=== PATIENT | female | born 1960 | race Caucasian/White ===

== ENCOUNTER 2016-10-26 23:05 | Emergency (ER) | payer OTHER ==
[~2016-10-26 23:05] MED LIST: ADDERALL10 MG PO; ATIVAN0.5 M1 PO; METFORMIN HCL500 MG PO; REMERON30 MG PO; ZOC10 PO
[2016-10-27 00:36] LABS: microscopic required? NO
[2016-10-27 00:43] LABS: UA SPECIFIC GRAVITY <=1.005 (1.005-1.035); urine erythrocyte NEGATIVE (NEGATIVE)
[2016-10-27 00:46] LABS: BASOPHIL % 0.8 % (0-2); PLATELET COUNT 308 x10^3mcL (130-400)
[2016-10-27 00:49] LABS: RED CELL DISTRIBUTION WIDTH 19.8 % (11.5-14.5)
[2016-10-27 01:05] LABS: ALKALINE PHOSPHATASE 210 U/L (46-116); ALT/SGPT 86 U/L (14-59); AST/SGOT 118 U/L (15-37); BILIRUBIN TOTAL 0.54 mg/dL (0.20-1.00); CALCIUM 8.9 mg/dL (8.5-10.1); CARBON DIOXIDE 24.8 mmol/L (21-32); CHLORIDE SERUM 95 mmol/L (98-107); CREATININE SERUM 0.9 mg/dL (0.6-1.0); GFR1 > 60 mL/min; POTASSIUM SERUM 4.2 mmol/L (3.5-5.1); SODIUM SERUM 129 mmol/L (136-145); TOTAL PROTEIN, SERUM 7.9 g/dL (6.4-8.2)
[2016-10-27 01:07] LABS: GLUCOSE SERUM 513 mg/dL (74-106)
[2016-10-27 03:39] VITALS: BP 108/63
[2016-10-27] MEDS ORDERED: LATUDA20 M1 PO (22:42)
[2016-10-27] MEDS ORDERED: LUNESTA2 M1 PO (22:43)
== END 2016-10-27 03:39 | disposition home or self-care (01) ==
LOC: ED 23:05
PROVIDERS: Emergency Medicine
DX: E11.65 Type 2 diabetes mellitus with hyperglycemia (principal); E86.0 Dehydration; I10 Essential (primary) hypertension; F99 Mental disorder, not otherwise specified; Z79.84 Long term (current) use of oral hypoglycemic drugs
CPT/HCPCS: 82962; J1815; J1885; J7030; J7040

== ENCOUNTER 2016-10-27 17:25 | Inpatient (IN) | payer OTHER ==
[~2016-10-27] VITALS: Ht 160 cm; Wt 81.6 kg
[2016-10-27 21:09] LABS: BASOPHIL % 0.2 % (0-2); PLATELET COUNT 274 x10^3mcL (130-400)
[2016-10-27 21:10] LABS: RED CELL DISTRIBUTION WIDTH 19.9 % (11.5-14.5)
[2016-10-27 21:41] LABS: ALKALINE PHOSPHATASE 198 U/L (46-116); ALT/SGPT 87 U/L (14-59); AST/SGOT 161 U/L (15-37); BILIRUBIN TOTAL 0.3 mg/dL (0.20-1.00); CALCIUM 8.5 mg/dL (8.5-10.1); CARBON DIOXIDE 25.7 mmol/L (21-32); CHLORIDE SERUM 95 mmol/L (98-107); CHOLESTEROL 143 mg/dL (<200); CREATININE SERUM 0.9 mg/dL (0.6-1.0); GFR1 > 60 mL/min; PHOSPHOROUS 2.2 mg/dL (2.5-4.9); POTASSIUM SERUM 4.5 mmol/L (3.5-5.1); SODIUM SERUM 131 mmol/L (136-145); URIC ACID 2.7 mg/dL (2.6-6.0)
[2016-10-27 21:43] LABS: ALBUMIN 2.7 g/dL (3.4-5.0); GLUCOSE SERUM 456 mg/dL (74-106); HDL CHOLESTEROL 19 mg/dL (40-60)
[2016-10-27] MEDS ORDERED: LATUDA20 M1 PO (22:42)
[2016-10-27] MEDS ORDERED: LUNESTA2 M1 PO (22:43)
[2016-10-27 22:54] LABS: microscopic required? NO
[2016-10-27 23:10] LABS: UA SPECIFIC GRAVITY <=1.005 (1.005-1.035); urine erythrocyte NEGATIVE (NEGATIVE)
[2016-10-27 23:21] LABS: AMPHETAMINE QUAL UR NONE DETECTED (NEG <=1000)
[2016-10-27 23:31] VITALS: BP 110/62
[2016-10-28 00:01] LABS: T3 TOTAL 1.18 ng/mL
[2016-10-28 00:17] LABS: MAGNESIUM 1.7 mg/dL (1.8-2.4)
[2016-10-28 00:18] VITALS: BP 110/62
[2016-10-28 00:36] LABS: FREE T4 1.33 ng/dL (0.76-1.46); FREE THYROXINE INDEX 3.6 ug/dL (1.4-4.5); T4(THYROXINE) 10.8 ug/dL (4.7-13.3)
[2016-10-28 04:31] LABS: BASOPHIL % 0.2 % (0-2); PLATELET COUNT 302 x10^3mcL (130-400); RED CELL DISTRIBUTION WIDTH 20.6 % (11.5-14.5)
[2016-10-28 04:52] LABS: CALCIUM 8.6 mg/dL (8.5-10.1); CARBON DIOXIDE 25.4 mmol/L (21-32); CHLORIDE SERUM 102 mmol/L (98-107); CREATININE SERUM 0.7 mg/dL (0.6-1.0); GFR1 > 60 mL/min; GLUCOSE SERUM 272 mg/dL (74-106); MAGNESIUM 1.7 mg/dL (1.8-2.4); PHOSPHOROUS 2.3 mg/dL (2.5-4.9); POTASSIUM SERUM 3.9 mmol/L (3.5-5.1); SODIUM SERUM 135 mmol/L (136-145)
[2016-10-28 05:43] LABS: target cell (codocyte) 2+
[2016-10-28 05:44] LABS: rbc morphology (normal/abnorm) ABNORMAL (NORMAL)
[2016-10-28 06:57] VITALS: BP 96/36
[2016-10-28 10:03] VITALS: BP 100/64
[2016-10-28 11:58] VITALS: Ht 160 cm; Wt 81.6 kg
[2016-10-28 13:13] VITALS: BP 117/79
[2016-10-28 18:05] VITALS: BP 126/63
[2016-10-28 21:34] VITALS: BP 97/54
[2016-10-29 06:31] LABS: BASOPHIL % 0.4 % (0-2); PLATELET COUNT 316 x10^3mcL (130-400)
[2016-10-29 06:45] LABS: RED CELL DISTRIBUTION WIDTH 20.7 % (11.5-14.5)
[2016-10-29 06:47] LABS: rbc morphology (normal/abnorm) ABNORMAL (NORMAL); target cell (codocyte) 1+
[2016-10-29 06:53] LABS: CALCIUM 8.7 mg/dL (8.5-10.1); CARBON DIOXIDE 24.1 mmol/L (21-32); CHLORIDE SERUM 108 mmol/L (98-107); CREATININE SERUM 0.7 mg/dL (0.6-1.0); GFR1 > 60 mL/min; GLUCOSE SERUM 246 mg/dL (74-106); MAGNESIUM 1.8 mg/dL (1.8-2.4); PHOSPHOROUS 3.3 mg/dL (2.5-4.9); POTASSIUM SERUM 4.1 mmol/L (3.5-5.1); SODIUM SERUM 144 mmol/L (136-145)
[2016-10-29 06:56] VITALS: BP 116/62
[2016-10-29 10:10] VITALS: BP 99/62
[2016-10-29 16:00] VITALS: BP 110/67
[2016-10-29] MEDS ORDERED: LANTUS SOLOS100 U/M1 SQ (17:02)
== END 2016-10-29 18:30 | disposition home or self-care (01) | DRG 638 ==
LOC: ED 17:25 → DU 21:53 → MU 10-29 11:56
PROVIDERS: Emergency Medicine; ADMIT Family Medicine
DX: E11.65 Type 2 diabetes mellitus with hyperglycemia (principal); E72.20 Disorder of urea cycle metabolism, unspecified; D68.69 Other thrombophilia; E11.59 Type 2 diabetes mellitus with other circulatory complications; B37.3 Candidiasis of vulva and vagina; F41.9 Anxiety disorder, unspecified; F32.9 Major depressive disorder, single episode, unspecified; K76.0 Fatty (change of) liver, not elsewhere classified; R74.0 Nonspecific elevation of levels of transaminase and lactic acid dehydrogenase [LDH]; E83.39 Other disorders of phosphorus metabolism; E83.42 Hypomagnesemia; Z68.31 Body mass index [BMI] 31.0-31.9, adult; Z79.84 Long term (current) use of oral hypoglycemic drugs
CPT/HCPCS: 82962; 83880; 84439; C9113; J1815; J7030; Q0092

== ENCOUNTER 2016-12-23 17:12 | Inpatient (IN) | payer OTHER ==
[~2016-12-23] VITALS: Ht 160 cm; Wt 80.0 kg
[~2016-12-23 17:12] MED LIST changes: +LANTUS SOLOS100 U/M1 SQ; +LATUDA20 M1 PO; +LUNESTA2 M1 PO
--- NOTE | 2016-12-23 17:24 | NUR ---
AMBULATORY TO BED 12 WITH STEADY GAIT
--- NOTE | 2016-12-23 17:32 | NUR ---
MSE COMPLETED BY DR SEPULVEDA
--- NOTE | 2016-12-23 17:52 | NUR ---
PT TO ED FOR C/O DIZZINESS, GENERALIZED WEAKNESS, N/V X 2 WEEKS, PT STATES SHE VOMITS ABOUT 2-3 TIMES PER DAY, SKIN IS COOL AND CLAMMY AND PALE, PER PTS DAUGHTER SHE HAS BEEN LIKE THIS FOR ABOUT AL COUPLE WEEKS, PT IS ALSO HAVING A DIFFICULT TIME URINATING, AND WHEN SHE DID URINATE IT WAS A DARK MELIZA COLOR, PT AAOX4 ,RESP E/U, PT IN NAD NOTED AT THIS TIME,
[2016-12-23 18:17] LABS: BASOPHIL % 0 % (0-2); PLATELET COUNT 160 x10^3mcL (130-400); RED CELL DISTRIBUTION WIDTH 19.7 % (11.5-14.5)
[2016-12-23 18:21] LABS: CALCIUM 8.2 mg/dL (8.5-10.1); CARBON DIOXIDE 25.6 mmol/L (21-32); CHLORIDE SERUM 103 mmol/L (98-107); CREATININE SERUM 0.7 mg/dL (0.6-1.0); GFR1 > 60 mL/min; GLUCOSE SERUM 132 mg/dL (74-106); POTASSIUM SERUM 3.5 mmol/L (3.5-5.1); SODIUM SERUM 137 mmol/L (136-145)
[2016-12-23 18:26] LABS: ALBUMIN 2.4 g/dL (3.4-5.0); ALKALINE PHOSPHATASE 408 U/L (46-116); ALT/SGPT 71 U/L (14-59); AST/SGOT 349 U/L (15-37); BILIRUBIN TOTAL 1.48 mg/dL (0.20-1.00); LIPASE 138 IU/L (73-393); TOTAL PROTEIN, SERUM 7.2 g/dL (6.4-8.2)
[2016-12-23] MEDS ORDERED: ZOLOFT100 MG PO (19:19)
[2016-12-23] MEDS ORDERED: LISINOPRIL2.5 MG PO (19:19)
--- NOTE | 2016-12-23 19:34 | NUR ---
REPORT GIVEN TO RAJAN TO ASSUME CARE OF PT.
[2016-12-23 20:08] LABS: T3 TOTAL 0.86 ng/mL
[2016-12-23 20:11] VITALS: BP 112/67
--- NOTE | 2016-12-23 20:18 | NUR ---
RECEIVED PATIENT FROM ED VIA GUERNEY, PATIENT ALERT AND ORIENTED, TELE # 22 SR, IV ACCESS TO RFA WNL, NO C/O PAIN AT THIS TIME, ORIENTED PATIENT TO ROOM AND SURROUNDINGS, BED IN LOW POSTION, BED RAILS UP X 2, CALL LIGHT WITHIN REACH, WILL ENDORSEC ARE TO PRIMARY NURSE CONNIE Wheeler RN
[2016-12-23 20:37] LABS: MAGNESIUM 1.7 mg/dL (1.8-2.4); PHOSPHOROUS 2.1 mg/dL (2.5-4.9)
[2016-12-23 20:38] LABS: CHOLESTEROL/HDL RATIO 12.8
[2016-12-23 20:48] LABS: FREE T4 1.54 ng/dL (0.76-1.46); T4(THYROXINE) 11.9 ug/dL (4.7-13.3)
[2016-12-23 20:57] LABS: UA SPECIFIC GRAVITY 1.015 (1.005-1.035); microscopic required? YES
[2016-12-23 20:58] LABS: urine erythrocyte NEGATIVE (NEGATIVE)
--- NOTE | 2016-12-24 00:40 | NUR ---
PT'S IV TO RTFA ACCIDENTALLY GOT PULLED OUT BY PT. STARTED NEW IV ON THE LT HAND. PT TOLERATED PROCEDURE WELL.
--- NOTE | 2016-12-24 04:53 | NUR ---
PT SLEEPING COMFORTABLY IN BED IN SUPINE POSITION. NO DISTRESS NOTED AT THIS TIME. WILL CONTINUE TO MONITOR PT.
[2016-12-24 05:24] VITALS: BP 104/59
[2016-12-24 06:42] LABS: BASOPHIL % 0.3 % (0-2); PLATELET COUNT 170 x10^3mcL (130-400)
[2016-12-24 06:44] LABS: RED CELL DISTRIBUTION WIDTH 19.8 % (11.5-14.5); rbc morphology (normal/abnorm) ABNORMAL (NORMAL)
[2016-12-24 07:05] LABS: CALCIUM 7.9 mg/dL (8.5-10.1); CARBON DIOXIDE 24.1 mmol/L (21-32); CHLORIDE SERUM 107 mmol/L (98-107); CREATININE SERUM 0.6 mg/dL (0.6-1.0); GFR1 > 60 mL/min; GLUCOSE SERUM 116 mg/dL (74-106); MAGNESIUM 1.9 mg/dL (1.8-2.4); PHOSPHOROUS 2.4 mg/dL (2.5-4.9); POTASSIUM SERUM 3.5 mmol/L (3.5-5.1); SODIUM SERUM 139 mmol/L (136-145)
--- NOTE | 2016-12-24 07:35 | NUR ---
RECEIVED PATIENT SITTING UP IN BED A/O X4, CLEAR SPEECH, NO NEURO DEFICITS NOTED. TELE # [address], DENIES CHEST PAIN. BREATHING EVEN UNLABBORED ON RA, DENIES SOB, NO DISTRESS NOTED. PATIENT DENIES ANY N/V OR ABD PAIN. SKIN IS WARM CDI WITH IV TO LH INTACT INFUSING NS AT 100 ML/HR FREE FROM REDNESS AND INFILTRATION. PATIENT CALM WITH CARE. INSTRUCTED TO CALL FOR ASSISTANCE IF NEEDED. CALL LIGHT WITHIN REACH, BED IN LOW POSITION. WILL MONITOR.
[2016-12-24 09:00] VITALS: BP 122/75
--- NOTE | 2016-12-24 09:23 | NUR ---
ROUNDS MADE- DR. MARTÍNEZ, RESIDENT TEAM, CHARGE NURSE AND PRIMARY NURSE AT BEDSIDE. POC REVIEWED WITH PATIENT- PATIENT WILL BE SEEN BY GI AND FOLLOW UP WITH RECOMMENDATIONS. ALL QUESTIONS AND CONCERNS ADDRESSED.
--- NOTE | 2016-12-24 09:50 | NUR ---
PATIENT TAKEN DOWN TO CT SCAN VIA WHEELCHAIR. VULNERABILITY ASSESSMENT ANALYST MADE AWARE.
--- NOTE | 2016-12-24 10:05 | NUR ---
PATIENT BACK FROM CT SCAN, HEAD WRESTLING COACH AWARE.
--- NOTE | 2016-12-24 12:00 | NUR ---
IV TO LH NOT FLUSHING, MEETING RESISTANCE. IV TO LH REMOVED CATH INTACT. NEW IV PLACED TO PATIENTS LFA GOOD BLOOD RETURN NOTED, FLUSHED WELL WITH 10 ML NS. IVF RESUMED. PATIENT TOLERATED WLL. WILL CONTINUE TO MONITOR.
--- NOTE | 2016-12-24 12:29 | NUR ---
STOOL SAMPLE COLLECTED, WILL SEND DOWN TO LAB.
[2016-12-24 14:16] VITALS: BP 106/66
--- NOTE | 2016-12-24 15:35 | NUR ---
Initial Nutrition Assessment Dx: Acute Liver Disease, Generalized Weakness PMHx: Type 2 DM, depression, anxiety PSHx: Cholecystectomy, (1986, 1991) Labs: BG 116 H, Phosphorous 2.4 L, WBC 16.4 H, H/H 10.4/32 L; (12/23) ALB 2.4 L, TBili 1.48 H, AST 349 H, ALT 71 H, ALP 408 H, Triglycerides 157 H, Amylase 193 H, A1C 8.5 H, Ammonia 83 H Meds: Cephulac, Colace, D50, ferrous sulfate, Glucophage, humulin R, reglan, NS IV, theragran, zofran Current Diet Order: CCHO-60 gm PO Intakes: None recorded yet Ht: 63", 5' 3". Wt: 176 lb, 80 kg. BMI: 31.2 kg/m2 (Obesity Class I) IBW: 115 lb, 52 kg. %IBW: 154%. Adj BW: 130 lb, 59 kg. UBW: 180 lb, 82 kg. Wt Hx: (01/28/15) 175 lb, 80 kg. Age: 56 Y/O F Food Allergies: None Skin: Intact. Jean Pierre 20. Edema: None GI: Abd soft, round. Active bowel sounds. Last BM 12/23. Loose BM. Noted pt on cephulac. Nursing Trigger: Unintentional weight loss >10 lb in past month; Admitted with potential risk diagnosis; Poor PO intakes >3 days. Pt found with hepatic encephalopathy secondary to possible acute liver failure, possible acute liver failure, r/o hepatitis per doctor's notes. Pt was seen resting in bed during RD visit, family at bedside visiting. Pt reported good PO intakes, no issues at this time, appears to be not too interested in engaging in verbal interview. However, sister at bedside also participated in some RD verbal questions. Sister was concerned that pt unable to take care of self at home, would like to have someone to come to pt's home to check on pt, left cell phone number [phone]. RD informed RN and Dr. Greenberg regarding sister's concern. Doctor also agreeable with RD recommendations. Problem with: N: None. V: None. D: Yes. C: None. Problems with: Chewing: None. Swallowing: None. Current Appetite: Good per pt Recent Weight Change: -8 lb. % Weight Change: 4.4% weight loss due to nausea and unable to eat properly Vitamin/Supplement use: None Diet at Home: Regular; Per sister, stated that pt likes to eat fast food all the time due to convenience purposes Physical Activity: Some walking Education: RD provided DM and low sodium diet education to pt and family. RD discussed carb counting, portion sizes, low sodium food options, carb snack options, and exercise. Handouts provided to pt. DM class flyer provided to pt as well, encouraged to attend. Pt and family verbalizes understanding. Estimated Nutritional Needs Based IBW 115 lb, 52 kg. Energy: 0678-1409 kcal/day (30-35 kcal/kg for Acute Liver Disease) Protein: 42-62 gm/day (0.8-1.2 gm/kg for Hepatic Encephalopathy) - Advanced to 1.2-1.5 gm/kg as Encephalopathy resolves Fluids: 1820 ml/day (30 ml/kg for Maintenance) or per doctor Nutrition Diagnosis 1. Altered nutrition related labs related to impaired liver function as evidenced by elevated TBili 1.48, AST 349, ALT 71, ALP 108, Ammonia 83 2. Increase nutritional needs (energy, protein, vitamin, minerals) related to increased demand as evidenced by diagnosis of acute liver disease with catabolic state Intervention 1. Continue CCHO-60 gm diet per doctor. 2. Consider CCHO-60 gm, 2 gm Na diet if pt has edema. 3. Recommend Zinc Sulfate 220 mg PO daily. Monitor/Evaluate Goal: PO intakes to meet >75% of estimated needs Monitor: PO intakes, tolerance to diet, labs (ammonia, liver panel), skin integrity, GI function F/U in 3-5 days as MODERATE risk (12/27-12/29)
--- NOTE | 2016-12-24 16:09 | NUR ---
DR. HENRIQUEZ (DO-RESIDENT) MADE AWARE OF PHOS 2.4. NO NEW ORDERS RECEIVED. WILL MONITOR.
[2016-12-24 18:24] VITALS: BP 109/63
--- NOTE | 2016-12-24 19:02 | NUR ---
PATIENT SITTING UP IN BED WITH VISITORS AT BEDSIDE. IV TO LFA INTACT INFUSING IVF WELL. ALL NEEDS ATTENDED TO DURING SHIFT. WILL ENDORSE CARE TO ONCOMING NURSE.
--- NOTE | 2016-12-24 19:40 | NUR ---
RECD PT IN BED LAYING IN BED, AAO X4. PT HAS CLEAR LUNG SOUNDS UPON AUSCULTATION. PT ON TELE # 22 NSR. PT HAS IV TO LFA RUNNING NS @ 100 ML/HR. PT REFUSED SCD. BOWEL SOUNDS ACTIVE, ABD SOFT AND NON-TENDER. NO EDEMA NOTED IN BLE, PEDAL PULSES PRESENT. NO C/O PAIN AT THIS TIME. BED IN LOW POSITION, CALL LIGHT WITHIN REACH. WILL CONTINUE TO MONITOR.
--- NOTE | 2016-12-24 19:55 | NUR ---
I HAVE REVIEWED THE DATA COLLECTION BY RADIAL ROUTER OPERATOR (NAME):CHRISTEN MONTERROSO [facility]. ENTERED ON (DATE/TIME): I CONCUR WITH THE DATA AND ANY EXCEPTIONS OR COMMENTS ARE LISTED BELOW:
[2016-12-24 23:10] VITALS: BP 118/77
--- NOTE | 2016-12-25 04:05 | NUR ---
PT SLEEPING COMFORTABLY AT THIS TIME. NO SIGNS OF DISTRESS NOTED. WILL CONTINUE TO MONITOR.
[2016-12-25 05:54] VITALS: BP 97/58
[2016-12-25 06:21] LABS: BASOPHIL % 0.2 % (0-2); PLATELET COUNT 142 x10^3mcL (130-400)
[2016-12-25 06:51] LABS: RED CELL DISTRIBUTION WIDTH 20.4 % (11.5-14.5)
--- NOTE | 2016-12-25 06:52 | NUR ---
PT SLEPT COMFORTABLY THROUGHOUT NIGHT. WAS GIVEN AMBIEN 1X IN EVENING TO HELP PT SLEEP PER PT'S REQUEST. NO C/O N/V/PAIN. PT RESTING COMFORTABLY AT THE MOMENT. BED IN LOW POSITION, CALL LIGHT WITHIN REACH.
--- NOTE | 2016-12-25 07:45 | NUR ---
RECEIVED PT LAYING IN BED ASLEEP. NO APPARENT SIGNS OF ACUTE DISTRESS NOTED. RESPIRATIONS EVEN AND UNLABORED. IV LFA APPEARS TO BE INFUSING WELL. CALL LIGHT WITHIN REACH, BED IN LOWEST POSITION. WILL CONTINUE TO MONITOR
--- NOTE | 2016-12-25 09:00 | NUR ---
AM ROUNDS DONE. PER DR. VELASQUEZ, PT CAN HAVE ORDERTO SHOWER, AND WILL DC TELE. WILL POSSIBLY DISCHARGE TOMORROW AND STAY TODAY FOR CONTINUED MONITORING. PT AGREES TO PLAN OF CARE. CALL LIGHT WITHIN REACH. WILL CONTINUE TO MONITOR
[2016-12-25 10:38] VITALS: BP 112/62
--- NOTE | 2016-12-25 13:14 | NUR ---
PT RESTING IN BED EYES CLOSED. NO APPARENT SIGNS OF ACUTE DISTRESS NOTED. RESPIRATIONS EVEN AND UNLABORED. CALL LIGHT WITHIN. BED IN LOWEST POSITION. WILL CONTINUE TO MONITOR
--- NOTE | 2016-12-25 15:18 | NUR ---
PT RESTING IN BED WATCHING TV. DENIES PAIN OR DISCOMFORT AT THIS TIME. BROUGHT PT ICE CHIPS. IV BAG CHANGED. CALL LIGHT WITHIN REACH. BED IN LOWEST POSITION. WILL CONTINUE TO MONITOR
[2016-12-25 16:49] VITALS: BP 125/78
--- NOTE | 2016-12-25 16:55 | NUR ---
AMMONIA AT 85. DR. HENRIQUEZ AWARE, STATING DR. CHANDLER IS AWARE BUT HAD DISCONTINUED THE LACTULOSE. WILL CONTINUE TO MONITOR
--- NOTE | 2016-12-25 19:20 | NUR ---
PT A/O X4, MED-SURG, NO TELE. PULES PALPABLE, NO EDEMA NOTED. LUNG SOUNDS CTA, BREATHING FREELY ON RA, DENIES SOB. ABD SOFT AND NONDISTENDED, BOWEL SOUNDS ACTIVE, LBM-9/4, FORMED. PT DENIES N/V. PT VOIDS ADEQUATELY, BRP. GENERALIZED WEAKNESS, PT IS AMBULATORY WITHOUT ASSIST. SKIN IS INTACT. PT DENIES PAIN AT THIS TIME. NS INFUSING TO LFA AT 100 ML/HR. BED IN LOWEST SETTING, SIDE RAILS UP X2, CALL LIGHT WITHIN REACH, WILL CONTINUE TO MONITOR.
[2016-12-25 20:48] VITALS: BP 113/59
[2016-12-26 05:23] VITALS: BP 114/62
[2016-12-26 06:14] LABS: BILIRUBIN DIRECT 0.84 mg/dL (0.0-0.2); BILIRUBIN TOTAL 1.24 mg/dL (0.20-1.00); TOTAL PROTEIN, SERUM 6.6 g/dL (6.4-8.2)
[2016-12-26 06:16] LABS: ALBUMIN 2.2 g/dL (3.4-5.0)
--- NOTE | 2016-12-26 07:20 | NUR ---
PT SLEPT AT INTERVALS THROUGHOUT THE NIGHT. PT DENIES PAIN AT THIS TIME. PT ON 02 2L NC. IVF INFUSING WELL. CARE ENDORSED TO AM NURSE.
--- NOTE | 2016-12-26 07:30 | NUR ---
PT IS AWAKE ALERT AND ORIENTED X4, ABLE TO MAKE NEEDS KNOWN. MED SURG PT. PULSES EQUAL BILATERAL. LUNGS CTA O2 PRN. BOWEL TONES ACTIVE IN ALL QUADS. BRP. IV TO THE LFA PATNET AND INTACT. PT IS CLAM AND COOPERATIVE WITH CARE. CALL LIGHT IN REACH WILL CONTINUE TO MONITOR.
--- NOTE | 2016-12-26 08:00 | NUR ---
PT OFF THE FLOOR IN GI LAB
--- NOTE | 2016-12-26 09:25 | NUR ---
PT BACK ON THE FLOOR, VSS, CALL LIGHT PLACED IN REACH. [facility] ONTINUE TO MONITOR.
[2016-12-26 09:52] VITALS: BP 122/74
--- NOTE | 2016-12-26 11:21 | NUR ---
TRANSPORTED TO US FOR LIVER BIOPSY. UPON REVIEW OF RECORDS DR ROCA WOULD LIKE CT OF ABDOMEN WITH CONTRAST DONE FIRST TO DETERMINE IF MASSES ARE PRESENT, IF SO HE WOULD BIOPSY LIVER MASS IF FEASIBLE. NOTIFIED DR HENRIQUEZ REGARDING SAME, OK TO PROCEED WITH CT WITH IV CONTRAST AND HOLD PATIENT'S METFORMIN FOR 48 HOURS POST EXAM. SPOKE WITH PATIENT'S NURSE JYOTSNA AND NOTIFIED REGARDING UPDATED IN PATIENR'S PLAN OF CARE. STARTED NEW IV TO RT AC GGE 20 FOR THE IV CONTRAST FOR EXAM.
--- NOTE | 2016-12-26 11:51 | NUR ---
AFTER CONTRAST CT SCAN AND PREPARING FOR BIOPSY OF MASS, DR ROCA REVIEWED LATEST IMAGES AND DECIDED TO DEFER DECISION REGARDING BIOPSY UNTIL THIS AFTERNOON, WILL RE-SCAN AT 1530 HRS. NOTIFIED PATIENT'S NURSE. SHE MAY HAVE FULL LIQUID DIET IN THE INTERIM. ALSO NOTIFIED PATIENT'S NURSE JYOTSNA R/T SPO2-88-89% ON ROOM AIR WHEN LYING FLAT. PATIENT DENIES HISTORY OF SMOKING, COPD OR ANY PRIOR BREATHING ISSUES. TRANSPORTED BACK TO [address] [place] [address] VIA WHEELCHAIR WITH O2 ON AT 3L/NC.
--- NOTE | 2016-12-26 13:11 | NUR ---
PT RESTING IN BED NO SIGNS OF DISTRESS CALL LIGHT IN REACH WILL CONTINUE TO MONITOR.
[2016-12-26 17:01] VITALS: BP 100/73
--- NOTE | 2016-12-26 17:22 | NUR ---
PT UP WALKING THE HALLWAYS WITH CONTINOUS PULSE OX, PT WALKED TO NURSES STATION AND BACK TO ROOM PT BEGAN SWEATING AND STATED SHE WAS TIRED, PULSE OX DROPPED TO 85%, AND HR WENT FROM 80 TO 105. PT PLACED BACK IN BED AND 3L [address] HENRIQUEZ MADE AWARE.
[2016-12-26 18:31] LABS: MITOCHONDRIAL ANTIBODY 25.6 Units (0.0-20.0)
[2016-12-26 18:32] VITALS: BP 100/73
--- NOTE | 2016-12-26 19:05 | NUR ---
PT STABLE REPORT GIVEN TO BOAT MASTER NURSE.
[2016-12-26 19:15] VITALS: BP 127/55
--- NOTE | 2016-12-26 19:15 | NUR ---
RECEIVED PT AWAKE ALERT AND VERBALLY RESPONSIVE WITH FLAT AFFECT.S/P EGD TODAY.DENIES ABDOMINAL PAIN.ENCOURAGED TO EXPRESS FEELINGS/THOUGHTS ABOUT HER CONDITION.ANSWERS QUESTIONS APPROPRIATELY.DENIES ABDOMINAL PAIN.NO N/V NOTED.WILL CONTINUE TO MONITOR.BP 127/55 MMHG,HR 103.
--- NOTE | 2016-12-27 04:50 | NUR ---
PT SLEPT WELL ALL NIGHT.MEDICATED WITH AMBIEN 5 MG PO X1 WITH GOOD RESULT.DENIES ABDOMINAL PAIN.NO N/V NOTED.EMOTIONAL SUPPORT PROVIDED.IV TO LFA ACCIDENTALLY PULLED OUT.ALL NEEDS MET.WILL CONTINUE TO MONITOR.
[2016-12-27 06:12] VITALS: BP 119/69
--- NOTE | 2016-12-27 08:00 | NUR ---
RECEIVED PATIENT WITH A NON DESCIPT OR FLAT AFFECT AT HIS TIME SHE HAS BEEN ADVISED OF FINDINGS YESTERDAY AND STILL SEEMS IN SHOCK ABOUT THE RECENT EVENTS. PATIENT HAS BEEN OOB AND TOLERATED WELL AND IV INTACT. LUNGS ARE CLEAR AND BOWEL SOUNDS ACTIVE. TADEO HAS DISTENTION OF THE ABDOMEN AND PATIENT HAS BEEN NPO ORDERED FIR US GUIDED BIOPSY. VS AT THIS TIME AT 97.5, 98, 16 119/69, 94% ON ROOM AIRL MAAME ALBRECHT NOTED LABS OF H AND H OF 10.4/33, AIC AT 8.5, POS AT 1.6, AGOT AT 348, ALK AT 459, TRIG 157, PAITENT FOR US GUIDED BIOPLY OF THE RIGHT LOBE OF THE CHEST. AUGUSTO HAS NOTED ATELECTASIS AND HAS A NODULE AT THE BREAST ON THE RIGHT AND A SOME PROMINENT LYMPHNODE WITHIN THE LEFT BREAST WELL. THEY CAN NOT RULE OUT A METATSTATIC DISEASE AT THIS TIME. MAAME AHS BACTERIA IN THE URINE AND IWTH WBC AT 6-10, AND PATIENT IS DIABETIC WITH GLUICOST AT 133 THIS AM. MAAME ALBRECHTS BEEN WITHOUT COMPLAINTS OF PAIN AT THIS TIME. WILL CONTIUNUE TO MONITRO AND ADVISE OF PLAN OF CARE.
[2016-12-27 09:10] VITALS: BP 138/79
--- NOTE | 2016-12-27 09:20 | NUR ---
SEEN BY INTERNS AND DR VELASQUEZ AND PLAN OF CARE DISCUSSED.
--- NOTE | 2016-12-27 10:21 | NUR ---
PATIENT SEEN BY THE LIME [employer]IL[employer] WORKER HELPER AND ADVISED OF PLAN OF CARE . PER THE FAMILY THE SISTER OF THE PATIET WAS CONCERNED AND WAS TOLD THAT THE PATIENT HAS CANCER, STAGE FOUR AND SHOULD CONDSIDER HOPSICE. PATIENT HAS NOT YET BEEN DIAGNOSISED AND THE BIOPSY WAS NOT DONE WELL. ASSURED THE FAMILY THAT THE ONCOLOGIST WILL BE SEEN ING THE PATIENT AND THEN WITH THE TEST RESULTS WILL DESIDE ON THE PLAN OF CARE BEST FREO THE PATIENT. PATIENT GIVEN HER LISINOPRIL AND HELD THE OTHER MEIDCAITON FOR POST THE PROCEDURE. WILL CONTINUED TO [facility] INDICATED,
--- NOTE | 2016-12-27 10:35 | NUR ---
RECEIVED ORDERS FOR BREAST BIOPSY. DR CARO REVIEWED FILMS AND WOULD LIKE BREAST US FOR EVALUATION. STATES WOULD BE ABLE TO PERFORM LIVER BIOPSY ON THIS PATIENT. SPOKE WITH PATIENT'S NURSE DAVI Duffy/Akbar ADEN AND PAGED DR HENRIQUEZ TO INFORM HIM. AWAITING CALLBACK.
--- NOTE | 2016-12-27 10:54 | NUR ---
NO RESPONSE, PAGED DR HENRIQUEZ AGAIN.
--- NOTE | 2016-12-27 10:57 | NUR ---
SPOKE WITH DR BISHOP RETURNING PAGE FOR DR HENRIQUEZ, EXPLAINED RECOMMENDATION FOR BREAST US FOR EVAL AND REQUEST FOR CT GUIDED LIVER BIOPSY. DR BISHOP WILL CONSULT WITH PATIENT AND TEAM AND LET US KNOW HOW TO PROCEED.
--- NOTE | 2016-12-27 11:12 | NUR ---
SPOKE WITH DR CRYSTAL BY PHONE, PLANS TO ORDER A REPEAT CT GUIDED LIVER BIOPSY AND WILL CHANGE THE BREAST BIOPSY TO DIAGNOSTIC US OF BREAST.
--- NOTE | 2016-12-27 11:42 | NUR ---
SEEN AGAIN BY THE IT OPERATIONS MANAGER AND PLAN OF LIVER BIOPSY TODAY RATHER THAN THE BREAST IS PLANNED. PATIENT FOR US OF THE BREAST PER DR CARO FINDINGS. PATIENT TO BE PICKED UP AT [facility] TODAY. FAMILY AT BEDSIDE AND SUPPORTIVE WITH CARE. BLOOD SUGAR AT THIS TIME AT 131 AND N O COVERAGE INDICATED.
--- NOTE | 2016-12-27 13:50 | NUR ---
PATIENT DOWN FOR CT GUIDED BIOPSY OF THE LIVER. PATIENT IS OBVIOUSLY DEPRESSED BUT FAMILY IS SUPPORTIVE AND HAS BEEN HERE SINCE EARLIER THIS AM. AWAITING ARRIVAL BACK TO THE FLOOR PATIENT TO HAVE US OF THE BREAST WELL.
--- NOTE | 2016-12-27 15:02 | NUR ---
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 CT of chest and abd showed subtle nodules of decreased attenuation within the right and left lobe of the liver suspicious for metastatic disease. Pt to have US guided liver biopsy to confim mets. Per RN, pt with no GI issues, pt just came back from liver biopsy and will be put on a full liquid diet. Estimated Nutritional Needs unchanged from prior assessment:IBW 115lb, 52kg Energy: 1560-1820kcal/day (30-35kcal/kg for acute liver disease) Protein: 42-62g/day (0.8-1.2gm/kg for hepatic encephalopathy) Advance to 1.2-1.5g/kg when encephalopathy improves Fluid: 1820ml/day (30ml/kg for maintenace) or per doctor Nutrition Diagnosis 1. Altered nutrition labs related to impaired liver function as evidenced by elevted T bili:1.48, AST:349, ALT:71, ALP:108, Ammonia:83 (ongoing) 2. Increase nutritional needs (energy, protein, vitamins and minerals) related to increased demands as evidenced by diagnosis of acute liver disease with catabolic state (ongoing) Intervention 1. Recommend advance diet as tolerated to CCHO 60gm per doctor s/p liver biopsy. 2. Consider CCHO 60gm, 2gm NA if pt has edema Monitor/Evaluate Previous goal: PO intakes to meet >75% est needs (met) Goal: diet advancement, PO intake at least 75% of estimated needs Monitor: PO intake, Labs, GI function F/U in 3-5 days as moderate risk:12/30-
--- NOTE | 2016-12-27 15:05 | NUR ---
1. Recommend advance diet as tolerated to CCHO 60gm per doctor s/p liver biopsy. 2. Consider CCHO 60gm, 2gm NA if pt has edema
--- NOTE | 2016-12-27 15:45 | NUR ---
@ 1535, HOME O2 EVALUATION WAS GIVEN TO PT. PT WAS RESTING IN BED ON ROOM AIR. SATURATION 94-95%. HR 94. RR 18. CLEAR/DIMINISHED BREATH SOUNDS. PT WAS AMBULATED AROUND THE HALLWAY ON ROOM AIR. SATURATION WAS 93% AT THE LOWEST. HR UP TO 102. RR 21. PT PLACED ON 2L CANNULA AND AMBULATED IN ROOM, SATURATION WAS 96-97%. PT THEN PLACED ON 2L CANNULA AT REST WITH A SATURATION OF 97-98%. FAMILY AT BEDSIDE THROUGHOUT PROCEDURES. PT REMAINS ON ROOM AIR. SATURATION 95%. NO DISTRESS NOTED. WILL CONTINUE TO MONITOR PT.
--- NOTE | 2016-12-27 17:13 | NUR ---
BLOOD SUGAR AT THIS TIME AT 189 BUT DUE TO SUCH A LATE MEAL THE PATIENT OPTED NOT TO TAKE INSULIN AT THIS TIME. WILL ADVISE THE ON COMING SHIFT. PATIDAVID ALBRECHTS BEEN WITH SOME SLIGHT PAIN TO THE LIVER BIOPSY SITE. ALONE NOW SHE IS A BIT DEPRESSED. ENCOURAGED TO VERBALIZE CONCERNS INDICATED.
--- NOTE | 2016-12-27 19:30 | NUR ---
PT ALERT/ORIENTED X4. NO C/O PAIN. VISITOR IN ROOM. PT ASSESSED; SEE NSG FLOWSHEET. SAFETY REINFORCED; SEE EDUCAT SHEET. WILL CONTINUE TO MONITOR.
[2016-12-27 20:55] VITALS: BP 115/64
--- NOTE | 2016-12-27 21:21 | NUR ---
ALL PT CARE ENDORSED TO LUPE VELÁSQUEZ
--- NOTE | 2016-12-27 21:50 | NUR ---
TOOK OVER PATIENT CARE FROM KEYON, REPORT GIVEN, RECEIVED PATIENT IN BED STILL AWAKE DENIES PAIN AND DISCOMFORT THIS TIME. GUANAKITO CONTINUE TO MONITOR.
--- NOTE | 2016-12-27 23:44 | NUR ---
STILL AWAKE, ASSISTED TO BATHROOMA ND VOIDED. SOB ON EXERTION NOTED, ON O2 AT 3L VIA NC.
--- NOTE | 2016-12-28 05:08 | NUR ---
SLEPT FAIRLY AFTER PATIENT REQUESTED AMBIEN, CHECKED AT INTERVALS FOR NEEDS AND SAFETY. ALL NEEDS ATTENDED.
[2016-12-28 06:08] VITALS: BP 103/65
[2016-12-28 06:41] LABS: BILIRUBIN DIRECT 1.33 mg/dL (0.0-0.2); BILIRUBIN TOTAL 1.83 mg/dL (0.20-1.00); TOTAL PROTEIN, SERUM 6.4 g/dL (6.4-8.2)
[2016-12-28 07:36] LABS: BASOPHIL % 0.1 % (0-2)
[2016-12-28 07:49] LABS: PLATELET COUNT 127 x10^3mcL (130-400); RED CELL DISTRIBUTION WIDTH 20.5 % (11.5-14.5)
--- NOTE | 2016-12-28 08:00 | NUR ---
PATIENT RECEIVED WITH SKIN IS DIAPHORECTIC AND KAYLA HAS A GRAYISH TONE TO HER SKIN. SHE STATES OFTEN WITH SOB AND AT THIS TIME 02 SATURATION AT 88 %. PATIENT HAS BEEN OOB WITH ASSIST TO THE RESTROOM AND BACK. PATIENT HAS DIMINISHED BREATH SOUNDS AND BOWEL SOUNDS HYPOACTIVE AND ABDOMEN IS DISTENDED AND SOFT. PATIENT HAS SOME GENERAL EDEMA TO THE BODY AND HAS COMPLAINED OF SWELLING TO THE HANDS AND FEET. IV ITNACT TO THE RIGHT AC AND PATIENT HAS BEEN RECEIVING ANTIBIOTICS AND NO ADVERSE REACTION NOTED. VITALS AT THIS TIME AT 97.0, 101, 18, 103/85, 88, 92% ON ROOM AIR. WITH EXERTION THE PATIENT DESATS TO THE HIGH EIGHTIES WILL ADVISE THE SPAR CAP BEVELER INDICATED. PATIENT IS ALONE IN THE ROOM AND THE NEW RESULTS OF THE BIOPSY AND PATIENT IS NOT AWARE OF THESE RESULTS AT THIS TIME. LAST BLOOD SUGAR AT 700AM AT 141. WILL CONTINUE TO MONITOR AND OFFER SUPPORT INDICATED.
[2016-12-28 09:50] VITALS: BP 125/75
[2016-12-28 09:52] LABS: burr cell (echinocyte) 1+
[2016-12-28 09:53] LABS: rbc morphology (normal/abnorm) ABNORMAL (NORMAL); tear drop cell (dacryocyte) 2+
--- NOTE | 2016-12-28 09:56 | NUR ---
SEEN BY THE INTESN BRANDON VELASQUEZ AND PLAN IS FOR DISCHARG EHOME TODAY AND WITH FOLLOW UP TOMORROW IN THE OFFICE AND AT THAT POINT A FOLLOW UP WITH THE ONCOLOGIST FOR THERAPY NEEDED. THERE WAS EVEN TALK OF A MEDIPORT PLACEMENT AT SOME PINT. PATIENT IS AGREEABLE WITH PLAN OF CARE.
[2016-12-28] MEDS ORDERED: AMB5 PO (13:02)
--- NOTE | 2016-12-28 13:02 | NUR ---
PATIENT IS FOR DISCHARGE HOME. SHE STATES SHE DOES NOT HAVE 02 AT HOME AND SHE APPARENTLY DOES NOT MEET THE CRITERIA FOR OXYGEN. PATIENT IS WITH FLAT AFFECT AND SHE APPEARS GRAYISH IN HER SKIN TONE AND OILY OR DIAPHORETIC IN APPEARANCE DOES NOT LOOK WELL. SHE DOES THOUGH MEET THE CRITERIA FOR DISCHARE. PATIENT ENCOURAGED TO FOLLOW UP WITH ONCOLOGIST FOR FURTHER PLAN OF CARE FAMILY AT BEDSIDE AND ATTENTIVE WITH CARE. PER THE INTERNS SHE IS TO BE DISCHARGE TO HOME TODAY WITHOUT 02 SHE SATUS ABOVE 92 %. WAITING COMPLETION OF ORDERS AT THIS TIME.
[2016-12-28] MEDS ORDERED: ZES5 PO (13:03)
[2016-12-28] MEDS ORDERED: PROVENTIL0.09 MG/A1 INH (13:04)
[2016-12-28] MEDS ORDERED: FLA500 PO (13:04)
[2016-12-28 13:12] VITALS: BP 125/75
--- NOTE | 2016-12-28 14:30 | NUR ---
SPOKE AT LENGTH WITH THE FAMILY ON THE PHONE AND APPARENTLY THERE ARE MISIMFORMATION ALL AROUND AND INFORMED HER THE PATIENT IS BEING DISCHARGE AND NO 02 SHE DOES NTOT MEET THE CRITERIA AND THAT SHE IS TO FOLLOW UP WITH DR SANTORO OFFICE SEEING DR MARTÍNEZ AND SHE IS TO GET A REFERAL TO ONCOLOGY FROM THERE. THERE IS NOT RESULTS YET FROM THE BIOPSY AND THEREFORE THE FAMILY WILL NEED TO WAIT THE DOCTOR WILL TO SEE WHAY THEY ARE DEALING WITH. THE PATIENT IV REMOVED AND THE PATIENT HAS ALL HER BELONGINGS AT TIME OF DISCHARGE. PATIENT IS IN NO ACUTE DISTRESS AT THIS TIME. SHE DOES NOT HAVE HOME 02. DISCHARGE TO HOME ORDERED WITH INSTRUCTIONS.
--- NOTE | 2016-12-28 14:30 | NUR ---
PROCESSED THE PICTURE OF THE WOUND SITE AND DUE TO POOR QUALITY OF THE PICTURE AND THE DARKNESS OF THE FRAME WA NOT ABLE TO USE AT THIS TIME. NOTED THE AREA WITH DRY BLOOD AND ONLY A SMALL PUNCTURE SITE AND THERE WAS MARKINGS ON THE SKIN FROM THE SKIN MARKER FOR PLACEMENT. PATIENT WITH NO DREAINAGE AND THE SITE IS HEALING NICELY AT THIS TIME REPLACED WITH CLEAN BANDAID INDICATED PRIOR TO DISCHARGE HOME.
== END 2016-12-28 14:30 | disposition home or self-care (01) | DRG 374 ==
LOC: ED 17:12 → DU 19:01 → MU 19:01 → DU 19:50 → MU 12-25 12:55
PROVIDERS: Emergency Medicine; Internal Medicine Gastroenterology; ADMIT Family Medicine
PROC: 0DB58ZX Excision of Esophagus, Via Natural or Artificial Opening Endoscopic, Diagnostic (ICD-10-PCS; principal; 2016-12-23)
PROC: 0DB78ZX Excision of Stomach, Pylorus, Via Natural or Artificial Opening Endoscopic, Diagnostic (ICD-10-PCS; 2016-12-23)
PROC: 0DB68ZX Excision of Stomach, Via Natural or Artificial Opening Endoscopic, Diagnostic (ICD-10-PCS; 2016-12-23)
PROC: 0FB13ZX Excision of Right Lobe Liver, Percutaneous Approach, Diagnostic (ICD-10-PCS; 2016-12-27)
DX: C16.1 Malignant neoplasm of fundus of stomach (principal); N17.0 Acute kidney failure with tubular necrosis; E43 Unspecified severe protein-calorie malnutrition; N39.0 Urinary tract infection, site not specified; C22.0 Liver cell carcinoma; K22.10 Ulcer of esophagus without bleeding; J90 Pleural effusion, not elsewhere classified; F33.2 Major depressive disorder, recurrent severe without psychotic features; K29.70 Gastritis, unspecified, without bleeding; N63 Unspecified lump in breast; N76.0 Acute vaginitis; E11.65 Type 2 diabetes mellitus with hyperglycemia; E83.42 Hypomagnesemia; F41.8 Other specified anxiety disorders; Z68.31 Body mass index [BMI] 31.0-31.9, adult; Z79.4 Long term (current) use of insulin; Z79.84 Long term (current) use of oral hypoglycemic drugs
CPT/HCPCS: 43235; 49180; 76641; 83516; 83880; 84439; 88344; J0696; J1200; J1610; J2001; J2250; J2310; J2405; J2765; J3010; J3490; J7030; Q0092; Q9967